=== PATIENT | female | born 1985 | race Hispanic/Latino ===

== ENCOUNTER 2022-02-07 15:00 | Inpatient (IN) | payer BC ==
[~2022-02-07] VITALS: Ht 152.4 cm; Wt 88.7 kg
[2022-02-07 15:28] LABS: BASOPHILS % (AUTO) 0.4 % (0.0-5.0); EOSINOPHILS % (AUTO) 1.2 % (0.0-8.0); HEMATOCRIT 44.1 % (36-48); MEAN CORPUSCULAR HEMOGLOBIN 29.9 pg (27.0-33.0); MEAN CORPUSCULAR VOLUME 93.6 fL (79-99); NEUTROPHILS % (AUTO) 64.3 % (40.0-77.0); PLATELET COUNT (AUTO) 311 K/uL (130-400); RED BLOOD CELL COUNT(AUTO) 4.71 MIL/uL (4.00-5.50); RED CELL DISTRIBUTION WIDTH 13.3 % (11.0-15.5); WHITE BLOOD COUNT (AUTO) 9.6 K/uL (4.8-10.8)
[2022-02-10] MEDS ORDERED: CEFAZOLIN SODIUM 2 GM VIAL IV SCH (09:00)
[2022-02-10 10:05] VITALS: BP 134/64
[2022-02-10] MEDS ORDERED: MULT-1367 PO (10:15)
[2022-02-11] VITALS (28 sets, daily range): BP systolic 101–133; BP diastolic 53–69
[2022-02-11] MEDS ORDERED: CEFAZOLIN SODIUM 1 GM VIAL ONE (06:15)
[2022-02-11] MEDS ORDERED: LACTATED RINGERS 1000ML 1,000 ML IV ONE (06:16)
[2022-02-11] MEDS ORDERED: PROPOFOL 1000 MG/100 ML 100 ML IV ONE (07:23)
[2022-02-11] MEDS ORDERED: FAMOTIDINE 20MG VIAL IV ONE (07:24)
[2022-02-11] MEDS ORDERED: MORPHINE PF 100MG/10ML AMP IV ONE (07:24)
[2022-02-11] MEDS ORDERED: PROPOFOL 10 MG/ML 20ML VIAL IV ONE (07:26)
[2022-02-11] MEDS ORDERED: ROCURONIUM 10MG/1ML SYR 10 MG/ML ML ONE (07:26)
[2022-02-11] MEDS ORDERED: FENTANYL CITRATE PF 50 MCG/1 ML 2ML VIAL ONE (07:26)
[2022-02-11] MEDS ORDERED: GLYCOPYRROLATE 1 MG/5 ML SYRINGE ONE (07:26)
[2022-02-11] MEDS ORDERED: LIDOCAINE PF 100MG/5ML (2%) SYRINGE 5ML ONE (07:30)
[2022-02-11] MEDS ORDERED: CEFAZOLIN SODIUM 2 GM VIAL IV ONE (07:41)
[2022-02-11] MEDS ORDERED: LIDOCAINE 1%-EPI 1:100,000 20 ML VIAL IJ ONE (08:01)
[2022-02-11] MEDS ORDERED: LIDOCAINE HCL MPF 1% 5ML VIAL ONE (08:06)
[2022-02-11] MEDS ORDERED: ONDANSETRON 4MG INJ ONE ×2 (08:15→09:31)
[2022-02-11] MEDS ORDERED: NEOSTIGMINE 5MG/5ML SYR IV ONE (09:34)
[2022-02-11] MEDS ORDERED: HYDROCODONE/ACETAMINOPHEN 5/325 MG TAB PO PRN (10:00)
[2022-02-11] MEDS ORDERED: MEPERIDINE-PF 75 MG/ML SYG IM PRN (10:00)
[2022-02-11] MEDS ORDERED: PROMETHAZINE HCL 25 MG/ML 1ML AMPULE IM PRN ×2 (10:00)
[2022-02-11] MEDS ORDERED: DOCUSATE SODIUM 100 MG CAP PO PRN (10:00)
[2022-02-11] MEDS ORDERED: SIMETHICONE 80 MG TAB.CHEW PO PRN (10:00)
[2022-02-11] MEDS ORDERED: ACETAMINOPHEN WITH CODEINE 1 TAB TAB PO PRN (10:00)
[2022-02-11] MEDS ORDERED: BISACODYL 10 MG SUPP.RECT RC PRN ×2 (10:00)
[2022-02-11] MEDS ORDERED: DIPH,PERTUSS(ACELL),TET VAC/PF 0.5 ML VIAL IM SCH (10:00)
[2022-02-11] MEDS ORDERED: HYDROMORPHONE 1 MG INJ ONE ×2 (10:17→10:39)
[2022-02-11] MEDS ORDERED: METOCLOPRAMIDE 10 MG/2 ML VIAL ONE (10:29)
[2022-02-11] MEDS: ONDANSETRON 4MG INJ IVP PRN ×2 (10:33→16:19)
[2022-02-11] MEDS: CALDOLOR 800MG+NS 250ML 250 ML IV SCH ×2 (11:07→18:27)
[2022-02-11] MEDS: DEXTROSE 5 %-0.45 % NACL 1,000 ML IV PRN ×2 (14:04→23:30)
[2022-02-12] VITALS (7 sets, daily range): BP systolic 97–113; BP diastolic 52–64
[2022-02-12] MEDS: CALDOLOR 800MG+NS 250ML 250 ML IV SCH (01:44)
[2022-02-12] MEDS: SIMETHICONE 80 MG TAB.CHEW PO PRN ×2 (08:47→21:29)
[2022-02-12] MEDS: DOCUSATE SODIUM 100 MG CAP PO PRN ×2 (08:47→21:29)
[2022-02-12] MEDS: IBUPROFEN 800 MG TAB PO SCH ×2 (09:35→17:20)
[2022-02-12] MEDS ORDERED: HYDROCODONE/ACETAMINOPHEN 5/325 MG TAB PO PRN (13:00)
[2022-02-12] MEDS: ACETAMINOPHEN WITH CODEINE 1 TAB TAB PO PRN (20:22)
[2022-02-13 02:45] VITALS: BP 125/78
[2022-02-13] MEDS: IBUPROFEN 800 MG TAB PO SCH ×2 (02:47→10:51)
[2022-02-13 07:20] VITALS: BP 110/64
[2022-02-13] MEDS: SIMETHICONE 80 MG TAB.CHEW PO PRN (08:59)
[2022-02-13] MEDS: DOCUSATE SODIUM 100 MG CAP PO PRN (08:59)
[2022-02-13] MEDS: ACETAMINOPHEN WITH CODEINE 1 TAB TAB PO PRN (09:00)
[2022-02-13 11:02] VITALS: BP 102/57
== END 2022-02-13 12:45 | disposition home or self-care (01) | DRG 743 ==
LOC: DAHIP 02-11 05:59 → WSH 02-11 11:35
PROVIDERS: ADMIT Obstetrics & Gynecology; ATTEND Obstetrics & Gynecology
PROC: 0UT90ZZ Resection of Uterus, Open Approach (ICD-10-PCS; principal; 2022-02-11 08:20)
PROC: 0JP Subcutaneous Tissue and Fascia, Removal (ICD-10-PCS; 2022-02-11 08:20)
DX: N92.1 Excessive and frequent menstruation with irregular cycle (principal); N80.9 Endometriosis, unspecified; E66.01 Morbid (severe) obesity due to excess calories; Z68.38 Body mass index [BMI] 38.0-38.9, adult; N73.6 Female pelvic peritoneal adhesions (postinfective); Z30.49 Encounter for surveillance of other contraceptives
CPT/HCPCS: 36415; 82948; 84703; 85025; 86850; 86900; 86901; 87426; 90715; A4344; G0378; J0690; J1170; J1741; J2001; J2175; J2274; J2405; J2550; J2704; J2710; J2765; J3010; J3490; J7030; J7120